=== PATIENT | male | born 1955 | race Caucasian/White ===

== ENCOUNTER 2017-05-07 09:56 | Day surgery (SDC) | payer OTHER ==
[~2017-05-07] VITALS: Ht 190.5 cm; Wt 131.0 kg
[~2017-05-07 09:56] MED LIST: ACET325 PO; ASPI325 PO; ATOR10 PO; ATOR20 PO; CEPH500 PO; HYDACE5325 PO; METO25 PO; MULVITMIND PO; OXYC5 PO
[2017-05-07] MEDS ORDERED: METF850 PO (10:40)
[2017-05-07] MEDS ORDERED: RANO500T PO (10:43)
[2017-05-07] MEDS ORDERED: CLOP75 PO (10:44)
[2017-05-07] MEDS ORDERED: ISOMON20 PO (10:46)
[2017-05-07] MEDS ORDERED: KRILL OIL 1,001 EAC1 PO (10:47)
[2017-05-07] MEDS ORDERED: NITR.4SL SL (10:50)
[2017-08-17] MEDS ORDERED: Vibramycin100 MG PO (22:10)
== END 2017-05-07 18:00 | disposition home or self-care (01) ==
LOC: MHTC 09:56 → ICUW 14:51 → MHTC 18:00
DX: I25.708 Atherosclerosis of coronary artery bypass graft(s), unspecified, with other forms of angina pectoris (principal); I25.118 Atherosclerotic heart disease of native coronary artery with other forms of angina pectoris; J44.9 Chronic obstructive pulmonary disease, unspecified; I10 Essential (primary) hypertension; E78.5 Hyperlipidemia, unspecified; E66.01 Morbid (severe) obesity due to excess calories; I73.9 Peripheral vascular disease, unspecified; Z95.1 Presence of aortocoronary bypass graft; Z95.0 Presence of cardiac pacemaker; Z87.891 Personal history of nicotine dependence; Z68.36 Body mass index [BMI] 36.0-36.9, adult; Z79.84 Long term (current) use of oral hypoglycemic drugs; Z79.82 Long term (current) use of aspirin; Z79.899 Other long term (current) drug therapy; Z95.5 Presence of coronary angioplasty implant and graft
CPT/HCPCS: 82947; 93459; 99152; 99153; C1769; C1887; C1894; J1644; J2250; J3010; J7030; Q9967

== ENCOUNTER 2019-05-09 09:18 | Emergency (ER) | payer OTHER ==
[~2019-05-09] VITALS: Ht 190.5 cm; Wt 108.9 kg
[~2019-05-09 09:18] MED LIST changes: +CLOP75 PO; +ISOMON20 PO; +KRILL OIL 1,001 EAC1 PO; +METF850 PO; +NITR.4SL SL; +RANO500T PO; +Vibramycin100 MG PO
[2019-05-09 10:55] LABS: BASOPHILS ABSOLUTE AUTO 0.05 K/mm3 (0.00-0.23); BASOPHILS PERCENT AUTO 1 % (0-2); EOSINOPHILS ABSOLUTE AUTO 0.14 K/mm3 (0.00-0.68); EOSINOPHILS PERCENT AUTO 2 % (0-6); Hematocrit 44.9 % (37.0-53.0); Hemoglobin 15.5 g/dL (13.5-17.5); IMMATURE GRAN ABSOLUTE AUTO 0.04 K/mm3 (0.00-0.10); IMMATURE GRAN PERCENT AUTO 0 % (0-1); LYMPHOCYTES ABSOLUTE AUTO 2.36 K/mm3 (0.84-5.20); LYMPHOCYTES PERCENT AUTO 25 % (21-46); MONOCYTES ABSOLUTE AUTO 0.63 K/mm3 (0.16-1.47); MONOCYTES PERCENT AUTO 7 % (4-13); Mean Corpuscular HGB 29.1 pg (26.0-34.0); Mean Corpuscular HGB Conc 34.5 g/dL (31.5-36.5); Mean Corpuscular Volume 84 fL (80-100); Mean Platelet Volume 9.8 fL (9.1-12.4); NEUTROPHILS PERCENT AUTO 66 % (41-73); Platelet Count 209 K/mm3 (150-400); RDW Standard Deviation 36.2 fL (35.1-46.3); Red Blood Cell Count 5.32 M/mm3 (4.30-5.90); White Blood Cell Count 9.52 K/mm3 (4.00-11.30)
[2019-05-09 11:04] LABS: Anion Gap 5 mmol/L (6-16); Blood Urea Nitrogen 14 mg/dL (8-24); CO2, Blood 27 mmol/L (21-32); Calcium, Blood 8.8 mg/dL (8.5-10.1); Chloride, Blood 105 mmol/L (98-108); Creatinine, Blood 0.78 mg/dL (0.60-1.20); Glomerular Filtration Rate >60 (60-); Glucose, Blood 398 mg/dL (70-99); Potassium, Blood 4.6 mmol/L (3.5-5.5); Sodium, Blood 137 mmol/L (136-145)
[2019-05-09] MEDS ORDERED: Cleocin HCl300 MG PO (12:02)
== END 2019-05-09 12:12 | disposition home or self-care (01) ==
LOC: ER 09:18
PROVIDERS: Emergency Medicine
DX: L03.317 Cellulitis of buttock (principal); E11.65 Type 2 diabetes mellitus with hyperglycemia; E78.5 Hyperlipidemia, unspecified; Z79.84 Long term (current) use of oral hypoglycemic drugs; Z79.899 Other long term (current) drug therapy; Z87.891 Personal history of nicotine dependence
CPT/HCPCS: 36415; 72193; 80048; 85025; Q9967

== ENCOUNTER → 2019-05-27 | Outpatient (CLI) | payer OTHER ==
[~2019-05-27] MED LIST changes: +Cleocin HCl300 MG PO
== END | disposition home or self-care (01) ==
LOC: LAB 17:59 → LAB SHORT 17:59
DX: L98.9 Disorder of the skin and subcutaneous tissue, unspecified (principal)
CPT/HCPCS: 87070; 87075; 87205

== ENCOUNTER 2021-08-05 09:32 | Emergency (ER) | payer OTHER ==
[~2021-08-05] VITALS: Ht 193 cm; Wt 117.9 kg
[2021-08-05] MEDS ORDERED: OXYC5 PO (10:49)
== END 2021-08-05 11:08 | disposition home or self-care (01) ==
LOC: ER 09:32
DX: S20.212A Contusion of left front wall of thorax, initial encounter (principal); Z87.891 Personal history of nicotine dependence; Z95.1 Presence of aortocoronary bypass graft; Z95.0 Presence of cardiac pacemaker; Z79.02 Long term (current) use of antithrombotics/antiplatelets; Z79.899 Other long term (current) drug therapy; Z79.82 Long term (current) use of aspirin; Z79.84 Long term (current) use of oral hypoglycemic drugs; W18.2XXA Fall in (into) shower or empty bathtub, initial encounter; Y92.9 Unspecified place or not applicable
CPT/HCPCS: 71101; A9270

== ENCOUNTER 2025-01-05 11:06 | Day surgery (SDC) | payer OTHER ==
[~2025-01-05] VITALS: Ht 190.5 cm; Wt 111.4 kg
[2025-01-05] MEDS ORDERED: Amlodipine Bes2.5 MG (11:45)
[2025-01-05] MEDS ORDERED: GLUC500 (11:46)
[2025-01-05] MEDS ORDERED: GLUCHON (11:46)
[2025-01-05] MEDS ORDERED: EZET10 (11:47)
[2025-01-05] MEDS ORDERED: BEET ROOT-TART1 EACH (11:47)
[2025-01-05] MEDS ORDERED: ONDA4ODT (11:49)
[2025-01-05] MEDS ORDERED: Lidocaine 2%-Epineph 1:100000 20 ML MDV ONE (12:41)
[2025-01-05] MEDS ORDERED: Oxymetazoline 0.05% Nasal Relief Spray 15mL BTL ONE (12:41)
[2025-01-05] MEDS ORDERED: FentaNYL Citrate 50 MCG/ML 2 ML Injection ONE ×2 (12:53→13:10)
[2025-01-05] MEDS ORDERED: Rocuronium Bromide 10 MG/ML 5ML Injection IV ONE (12:53)
[2025-01-05] MEDS ORDERED: SuccINYLCHOLINE Chloride 100 MG/5 ML 5MLSYR ONE (12:53)
[2025-01-05] MEDS ORDERED: Midazolam HCl 1MG / ML 2ML Vial ONE (13:10)
[2025-01-05] MEDS ORDERED: Ondansetron HCl 2 MG / ML 2ML Vial ONE (13:11)
[2025-01-05] MEDS ORDERED: Dexamethasone Sod Phos 10 MG/ML 1ML VIAL ONE (13:11)
[2025-01-05 14:15] VITALS: BP 99/59
== END 2025-01-05 14:35 | disposition home or self-care (01) ==
LOC: ORSCSDS 11:06
PROVIDERS: Otolaryngology
PROC: 0CBV8ZX Excision of Left Vocal Cord, Via Natural or Artificial Opening Endoscopic, Diagnostic (ICD-10-PCS; principal; 2025-01-05 12:30)
PROC: 0CBS8ZX Excision of Larynx, Via Natural or Artificial Opening Endoscopic, Diagnostic (ICD-10-PCS; principal; 2025-01-05 12:30)
PROC: 0CBT8ZX Excision of Right Vocal Cord, Via Natural or Artificial Opening Endoscopic, Diagnostic (ICD-10-PCS; principal; 2025-01-05 12:30)
DX: C32.0 Malignant neoplasm of glottis (principal); R49.0 Dysphonia; G47.33 Obstructive sleep apnea (adult) (pediatric); E11.9 Type 2 diabetes mellitus without complications; Z95.0 Presence of cardiac pacemaker; J44.9 Chronic obstructive pulmonary disease, unspecified; Z87.891 Personal history of nicotine dependence; E66.9 Obesity, unspecified; Z68.30 Body mass index [BMI] 30.0-30.9, adult; Z79.899 Other long term (current) drug therapy; Z79.84 Long term (current) use of oral hypoglycemic drugs; Z79.02 Long term (current) use of antithrombotics/antiplatelets
CPT/HCPCS: 82947; 88305; 88341; 88342; A9270; J0330; J1100; J2250; J2405; J2704; J3010; J7120